=== PATIENT | female | born 1990 | race American Indian/Alaskan Native ===

== ENCOUNTER 2017-05-08 22:05 | Emergency (ER) | payer MEDICAID ==
[2017-05-08 22:45] VITALS: BP 121/75
[2017-05-08 23:18] LABS: Basophils % (Auto) 0.2 % (0.0-1.8); Eosinophils % (Auto) 0.6 % (0.0-4.3); Hematocrit 34.7 % (30.3-42.9); Mean Corpuscular HGB Conc 35 % (30-34); Mean Corpuscular Hemoglobin 32 pg (28-32); Mean Corpuscular Volume 93 fl (79-97); Platelet Count 273 K/mm3 (140-440); Red Blood Count 3.72 M/mm3 (3.65-5.03); Red Cell Distribution Width 13.2 % (13.2-15.2); White Blood Count 10.1 K/mm3 (4.5-11.0)
[2017-05-08 23:46] LABS: Alanine Aminotransferase 59 units/L (7-56); Albumin 4.8 g/dL (3.9-5); Albumin/Globulin Ratio 1.4 %; Alkaline Phosphatase 70 units/L (35-129); Blood Urea Nitrogen 12 mg/dL (7-17); Calcium 11.2 mg/dL (8.4-10.2); Carbon Dioxide 25 mmol/L (22-30); Glucose 110 mg/dL (65-100); Potassium 5.6 mmol/L (3.6-5.0); Total Protein 8.3 g/dL (6.3-8.2)
[2017-05-09 00:12] LABS: Bacteria,Urine 1+ /HPF (Negative); Bilirubin,Urine NEG (Negative); Blood,Urine NEG (Negative); Ketones,Urine NEG (Negative); Leukocyte Esterase,Urine NEG (Negative); Mucus,Urine FEW /HPF; Nitrite,Urine NEG (Negative); Protein,Urine <15 mg/dL mg/dL (Negative); Urobilinogen,Urine < 2.0 mg/dL (<2.0)
[2017-05-09] MEDS ORDERED: TYLENOL PO ONE (00:13)
[2017-05-09 00:32] LABS: Anion Gap 18 mmol/L; Chloride 97.4 mmol/L (98-107); Sodium 135 mmol/L (137-145)
== END 2017-05-09 03:54 | disposition left against medical advice (07) ==
LOC: ED 22:05
DX: R51 Headache (principal); Z53.21 Procedure and treatment not carried out due to patient leaving prior to being seen by health care provider
CPT/HCPCS: 36415; 80053; 81001; 81025; 85025